=== PATIENT | male | born 1990 | race Caucasian/White ===

== ENCOUNTER 2020-04-04 21:41 | Emergency (ER) | payer BC, SELFPAY ==
[2020-04-04 21:53] VITALS: BP 140/86; BP 145/88; PULSE 78; PULSE 98; RESP 18; TEMP 36.9; O2SAT 97; O2SAT 99; BMI 31.3
--- NOTE | 2020-04-04 21:55 | ECG_ITS ---
Test Reason : ARRHYTHMIA Blood Pressure : / mmHG Vent. Rate : 070 BPM Atrial Rate : 070 BPM P-R Int : 146 ms QRS Dur : 110 ms QT Int : 400 ms P-R-T Axes : 050 006 046 degrees QTc Int : 432 ms Normal sinus rhythm Incomplete right bundle branch block Borderline ECG No previous ECGs available Referred By: Jelly Lozano Electronically Signed By:ALYSA FERNÁNDEZ MD
--- NOTE | 2020-04-04 21:57 | ED.ARRPALP ---
HPI - Arrhythmia/Palpitations General Chief Complaint: Arrhythmia/Palpitations Stated Complaint: PALPITATIONS,NUMBNESS DOWN LEFT ARM Time Seen by Provider: 04/04/20 21:55 Source: patient and EMS Mode of arrival: EMS Limitations: no limitations History of Present Illness HPI narrative: in bed on his phone felt a cramp in his left arm then developed palpitations - cramp went away and issue resolved, has had panic attacks in the past, no CP/SOB MD complaint: rapid heart beat, heart racing and atrial fibrillation Onset (ago): minute(s) (45) Duration: now resolved Severity: moderate Context: occurred during rest Associated symptoms: anxiety and paresthesias (wasn't sure if he felt tingling in his left fingers but it resolved) Related Data Allergies Allergy/AdvReac Type Severity Reaction Status Date / Time No Known Allergies Allergy Unverified 01/30/20 16:37 Review of Systems Review of Systems: Constitutional : No Weight loss, No Fever, No Chills ENT/Mouth : No sore throat, No Rhinorrhea Eyes: No Eye Pain, No Swelling Cardiovascular : no Chest Pain, no SOB, no Dyspnea on Exertion, No Orthopnea, No Edema, pos Palpitations Respiratory : No Cough, No Sputum Gastrointestinal : no Nausea, No Vomiting, No Diarrhea, No abdominal Pain, No Hematochezia, No Melena Genitourinary : No Dysuria, No Urinary Frequency Musculoskeletal : No joint pain, No Myalgias, No Joint Swelling Skin : No Skin Lesions, No rash Neuro : No Weakness, No Numbness, No Dizziness, No Headache Psych : pos Anxiety/Panic, No Depression Heme/Lymph: No Bruising, No Lymphadenopathy Endocrine : No Polyuria, No Polydipsia All other systems reviewed and are negative [facility] Past Medical History Attestation statement: The following information was validated with the patient. Medical History Anxiety Social History Social History (Updated 04/04/20 @ 21:59 by Jelly Lozano DO) Alcohol intake: current Alcohol intake frequency: a few times a month Alcohol type: beer Smoking Status: Current every day smoker Use of substances other than those prescribed or required for medical reasons: No Advance Directives: No Advance Directives Information Provided: Yes Physical Exam Vital Signs: Vital Signs: Last Vital Signs Temp 98.5 F 04/04/20 21:53 Pulse 78 04/04/20 21:53 Resp 18 04/04/20 21:53 BP 145/88 H 04/04/20 21:53 Pulse Ox 97 04/04/20 21:53 Body Mass Index 31.3 Appearance: Alert. Oriented X3. No acute distress. Eyes: Pupils equal, round and reactive to light. ENT: Pharynx normal. Neck: Normal inspection. Neck supple. CVS: Normal heart rate and rhythm. Pulses normal. Respiratory: No respiratory distress. Breath sounds normal. Abdomen: Soft and nontender. Skin: Skin warm and dry. Normal skin color. Normal skin turgor. Extremities: No lower extremity edema. No calf ttp Normal exam of LUE - SILT intact, 2+ radial pulse, BCR in all digits Neuro: Oriented X 3. No motor deficit. No sensory deficit. Course Course Course Narrative: negative workup stable for DC MDM - Arrhythmia/Palpitations MDM Narrative Medical decision making narrative: 29 yo male with hx of anxiety here with episode of L arm pain that has resolved resulting in palpitations and anxiety - no CP/SOB seems atypical for ACS/PE will obtain EKG, lytes and likely DC home if studies wnl, PERC negative Lab Data Result diagrams: 04/04/20 22:06 04/04/20 22:06 Labs: Lab Results 04/04/20 04/04/20 Range/Units 22:06 22:06 WBC 9.0 (4.8-10.8) X10*3/uL RBC 4.78 (4.60-5.80) X10*6/uL Hgb 15.3 (14.0-18.0) g/dl Hct 43.8 (42-52) % MCV 91.6 (80-98) fL MCH 32.0 (27.0-33.0) pg MCHC 34.9 (31.0-36.0) g/dl RDW 11.9 (11.0-16.0) % Plt Count 217 (160-400) X10*3/uL MPV 9.3 L (9.4-12.4) fL Immature Gran % (Auto) 0.7 H (0.0-0.4) % Neut % (Auto) 57.7 (45-73) % Lymph % (Auto) 27.6 (20-40) % [place] % (Auto) 9.6 (2-11) % Eos % (Auto) 3.7 (0-4) % Baso % (Auto) 0.7 (0-2) % Lymph # (Auto) 2.5 (1.2-4.9) X10*3/uL [place] # (Auto) 0.9 (0.1-1.2) X10*3/uL Eos # (Auto) 0.3 (0.0-0.4) X10*3/uL Baso # (Auto) 0.1 (0.0-0.2) X10*3/uL Abs Immat Gran (auto) 0.06 H (0.00-0.03) X10*3/uL Absolute Neuts (auto) 5.2 (2.0-8.3) X10*3/uL Absolute Nucleated RBC 0.000 (0.0-0.012) X10*3/uL Nucleated RBC % (auto) 0.0 (0.0-0.2) /100WBC Hold Blue Top SEE NOTE ECG Data Attestation: I personally reviewed and interpreted this ECG as follows: ECG interpretation date: 04/04/20 ECG interpretation time: 22:27 Interpretation: Rate: 70 Rhythm: NSR [place]: normal Normal P waves. Normal MARK[place]. normal QRS ST T wave : normal qTC: normal prior studies: no acute ischemia The study has been interpreted contemporaneously by me. . Scores Additional Scores PERC Score: Score: 0 Discharge Plan Discharge Clinical Impression: Palpitations Patient Disposition: Home, Self-Care Instructions: Heart Palpitations (ED) Additional Instructions: return to ED for any worsening symptoms or concerns Referrals: Kunal Khan MD [Primary Care Provider] - 2 days (if not better) Stand Alone Forms: Work/School Release
--- NOTE | 2020-04-04 22:05 | XR_ITS ---
EXAMINATION: PORTABLE CHEST 1 VIEW CLINICAL INFORMATION: palpitations . COMPARISON: 03/13/2012. TECHNIQUE: Portable frontal view of the chest was obtained. FINDINGS: The lungs are well expanded. No focal infiltrate, effusion, edema, or pneumothorax. Cardiac and mediastinal silhouettes are within normal limits for technique. No acute bony abnormality seen. XR/XR chest 1V IMPRESSION: No evidence of acute disease.
[2020-04-04 22:20] LABS: MANUAL DIFF FLAG NO
[2020-04-04 22:23] LABS: Basophils Absolute Auto 0.1 X10*3/uL (0.0-0.2); Basophils Percent Auto 0.7 % (0-2); Eosinophils Absolute Auto 0.3 X10*3/uL (0.0-0.4); Eosinophils Percent Auto 3.7 % (0-4); Hematocrit 43.8 % (42-52); Hemoglobin 15.3 g/dl (14.0-18.0); Imm Gran Abs Auto 0.06 X10*3/uL (0.00-0.03); Imm Gran Pct Auto 0.7 % (0.0-0.4); Lymphocytes Absolute Auto 2.5 X10*3/uL (1.2-4.9); Lymphocytes Percent Auto 27.6 % (20-40); Mean Corpuscular HGB Conc 34.9 g/dl (31.0-36.0); Mean Corpuscular Volume 91.6 fL (80-98); Mean Platelet Volume 9.3 fL (9.4-12.4); Monocytes Absolute Auto 0.9 X10*3/uL (0.1-1.2); Monocytes Percent Auto 9.6 % (2-11); Neutrophils Absolute Auto 5.2 X10*3/uL (2.0-8.3); Neutrophils Percent Auto 57.7 % (45-73); Platelet Count 217 X10*3/uL (160-400); Red Blood Count 4.78 X10*6/uL (4.60-5.80); Red Cell Distribution Width 11.9 % (11.0-16.0)
[2020-04-04 22:38] LABS: Amphetamine Screen Urine Not Detected (Not Detect); Barbiturates, Urine Not Detected (Not Detect); Benzodiazepines Screen Urine Not Detected (Not Detect); Cannabinoid Screen Urine Not Detected (Not Detect); Cocaine Screen Urine Not Detected (Not Detect); Opiate Screen Urine Not Detected (Not Detect); Phencyclidine Screen Urine Not Detected (Not Detect)
[2020-04-04 22:44] LABS: Anion Gap 13 (12-20); Blood Urea Nitrogen 12 mg/dL (9-16); Calcium 8.6 mg/dL (8.4-10.2); Carbon Dioxide 26 mmol/L (22-29); Chloride 105 mmol/L (96-108); Creatinine Clr Calc Pharmacy 141.7; Estimated Glomerular Filt Rate > 60; Glucose Random 98 mg/dL (60-115); Magnesium 2.2 mg/dL (1.6-2.6); Potassium 3.9 mmol/l (3.3-5.1); Sodium 140 mmol/L (135-145)
--- NOTE | 2020-04-04 22:48 | PC.NURSE ---
PT AWAITING FOR PENDING LABS.
[2020-04-04 22:52] LABS: Troponin-I High Sensitivity < 3.5 ng/L (<3.5-35.0)
[2020-04-04 23:06] LABS: Thyroid Stimulating Hormone 1.74 uIU/mL (0.32-4.0)
== END 2020-04-04 23:24 | disposition home or self-care (01) ==
PROVIDERS: Emergency Provider Emergency Medicine; PCP Internal Medicine
DX: R00.2 Palpitations (principal); F17.200 Nicotine dependence, unspecified, uncomplicated; Z71.6 Tobacco abuse counseling
CPT/HCPCS: 36415; 71045; 80048; 80307; 83735; 84443; 84484; 85025; 93005; 99283

== ENCOUNTER 2020-08-12 16:34 | Outpatient (REF) | payer BC, SELFPAY | END 2020-08-12 16:35 | disposition home or self-care (01) | LOC: HO.LNP 16:34 | PROVIDERS: Visit Provider Internal Medicine | DX: L72.8 Other follicular cysts of the skin and subcutaneous tissue (principal) | CPT/HCPCS: 87071; 87205 ==

== ENCOUNTER 2020-08-13 16:58 | Outpatient (REF) | payer BC, SELFPAY ==
[2020-08-13 17:47] LABS: Influenza A PCR NEGATIVE (Negative); Influenza B PCR NEGATIVE (Negative); Resp Syncy Virus RNA Qual PCR NEGATIVE (Negative); SARS COV2 PCR INHOUSE NEGATIVE (Negative)
== END 2020-08-13 16:59 | disposition home or self-care (01) ==
LOC: HO.LNP 16:58
PROVIDERS: Visit Provider Internal Medicine
DX: R50.9 Fever, unspecified (principal); Z20.822 Contact with and (suspected) exposure to COVID-19
CPT/HCPCS: 0241U

== ENCOUNTER 2021-06-14 23:28 | Emergency (ER) | payer BC, SELFPAY ==
[2021-06-14 23:34] VITALS: BP 141/84; PULSE 76; RESP 16; TEMP 36.6; O2SAT 99; BMI 32.5
--- NOTE | 2021-06-15 00:37 | ED_ITS ---
HPI - Extremity Problem General Chief complaint: Extremity Problem Stated complaint: blue vein in L leg, pain Time Seen by Provider: 06/14/21 23:55 Source: patient Mode of arrival: ambulatory History of Present Illness HPI Narrative: 30-year-old male with a past medical history of anxiety, cigarette smoker, presenting to the ED complaining of left calf pain and engorged leg veins since this afternoon. Was instructed by PCP to come to the emergency department. Denies fever, chills, SOB/CP, numbness/tingling, trauma/fall, history of clots, recent travel, steroid use Complaint: extremity pain Onset (ago): hour(s) Related Data Allergies Allergy/AdvReac Type Severity Reaction Status Date / Time No Known Allergies Allergy Verified 06/14/21 23:39 Review of Systems Verdana 4l Review of Systems: Verdana 4d Verdana 4d Constitutional: No Fever, No Chills, No Fatigue, No Malaise ENT/Mouth: No Ear Pain, No Nasal Congestion, No sore throat, No Rhinorrhea, No Swallowing Difficulty Eyes: No Eye Pain, No Discharge Cardiovascular: No Chest Pain, No SOB, No DyspneaDyspnea on Exertion, No Edema Respiratory: No Cough, No Sputum, No Dyspnea Gastrointestinal: No Nausea, No Vomiting, No Diarrhea, No Abdominal pain Genitourinary: No Dysuria, No Flank Pain, No Urinary Flow Changes Musculoskeletal: + joint pain, No Myalgias, No Joint Swelling Skin: No Skin Lesions, No rash Neuro: No Weakness, No Numbness, No Paresthesias, No Headache Yes all other systems are reviewed and are negative PMFSH Past Medical History Attestation statement: The following information was validated with the patient. 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 4d Pipe [employer] Tuner And Repairer New 4d Temp 97.9 F 06/14/21 23:34 Pipe Organ Tuner And Repairer New 4d Pulse 76 06/14/21 23:34 Pipe Organ Tuner And Repairer New 4d Resp 16 06/14/21 23:34 BP 141/84 H 06/14/21 23:34 Pulse Ox 99 06/14/21 23:34 BMI result Body Mass Index 32.5 Const: General: cooperative, healthy appearing, no acute distress, well developed, alert and awake Orientation/consciousness: patient oriented x3 Limitations: no limitations HENMT: Head: Yes normal to inspection Ears: hearing grossly normal bilaterally General nose exam: Normal external nose present Face and sinus: Yes normal facial exam Eyes: General: appearance normal, both eyes and all related structures EOM: EOMs intact bilaterally Neck: Neck: Yes normal visual inspection and Yes no meningeal signs Resp: Effort & Inspection: normal respiratory effort and no respiratory distress Auscultation: clear to auscultation bilaterally Cardio: Rate: regular rate Heart sounds: S1 normal heart sound present and S2 normal heart sound present Peripheral pulses: dorsalis pedis present Skin: Rashes: no rashes Wounds: no wounds Neuro: General: patient oriented x3 and no meningeal signs Gait exam (Neuro): Normal gait present Extrem: Other: +left calf ttp, no swelling/edema. Neurovascular intact distally. Mild superficial thrombophlebitis General: Yes normal to inspection Course Reevaluation(s) Reevaluation #1: -0100--D-dimer negative. Discussed with patient worrisome signs and symptoms and strict return precautions, supplied with outpatient ultrasound order for duplex tomorrow. Patient verbalized understanding & feels safe for discharge home at this time MDM - Extremity (Nontraumatic) MDM Narrative Medical decision making narrative: 30-year-old male with a past medical history of anxiety, cigarette smoker, presenting to the ED complaining of left calf pain and engorged leg veins since this afternoon. On exam vital signs stable, NAD/nontoxic-appearing, physical e xam as above. Concern for DVT vs superficial thrombophlebitis. Low concern for PE Plan: D-dimer Differential Diagnosis Differential diagnosis: Likely superficial thrombophlebitis and deep vein thrombosis of lower extremity Medical Records Attestation: I reviewed the patient's medical records. Lab Data Attestation: I reviewed the patient's lab results. Labs: Lab Results 06/15/21 Range/Units 00:40 D-Dimer High Sensitivty < 150 NG/ML Discharge Plan Discharge Clinical Impression: Superficial thrombophlebitis Patient Disposition: Home, Self-Care Instructions: Venous Insufficiency (DC) Additional Instructions: Your blood test was negative which rules you out for a blood clot. You were supplied with an outpatient ultrasound order, present to the main entrance of the hospital and register for this ultrasound tomorrow If symptoms persist or worsen, you developed leg swelling, constant or persistent pain, fever, shortness of breath or chest pain please return to the ED immediately Please follow-up with her doctor Referrals: Kunal Khan MD [Primary Care Provider] - 2 days
[2021-06-15 00:56] LABS: D Dimer High Sensitivity < 150 NG/ML
== END 2021-06-15 01:12 | disposition home or self-care (01) ==
PROVIDERS: Physician Assistant; Emergency Provider Emergency Medicine; PCP Internal Medicine
DX: I80.02 Phlebitis and thrombophlebitis of superficial vessels of left lower extremity (principal); M79.605 Pain in left leg; F17.200 Nicotine dependence, unspecified, uncomplicated
CPT/HCPCS: 36415; 85379; 99283; 99284

== ENCOUNTER 2021-06-15 14:17 | Outpatient (REF) | payer BC, SELFPAY ==
--- NOTE | ~2021-06-15 | US_ITS ---
EXAMINATION: US VENOUS ULTRASOUND WITH DOPPLER LOWER EXTREMITY, LEFT CLINICAL INFORMATION: Left calf pain COMPARISON: None TECHNIQUE: Ultrasound of the deep veins is performed from the hip to the calf with compression sonography and color and pulse Doppler assessment. Spectral analysis with color-flow imaging is performed. FINDINGS: There is normal venous compression and respiratory variation and augmented flow. The visualized common femoral vein, superficial femoral vein, profunda femoral vein, popliteal vein, and the trifurcation region shows no evidence of deep venous thrombosis. There is no significant popliteal fossa cyst. US/US venous duplex LE LT IMPRESSION: No DVT demonstrated in the left lower extremity.
== END 2021-06-15 14:18 | disposition home or self-care (01) ==
LOC: HO.US 14:17
PROVIDERS: PCP Internal Medicine; Visit Provider Physician Assistant
DX: M79.662 Pain in left lower leg (principal)
CPT/HCPCS: 93971

== ENCOUNTER 2022-12-16 13:32 | Outpatient (REF) | payer SELFPAY | END 2022-12-16 13:33 | disposition home or self-care (01) | LOC: HO.LNP 13:32 | PROVIDERS: Visit Provider Internal Medicine | DX: J02.9 Acute pharyngitis, unspecified (principal) | CPT/HCPCS: 87070; 87147 ==

== ENCOUNTER 2023-10-18 13:54 | Emergency (ER) | payer BC, SELFPAY ==
--- NOTE | ~2023-10-18 | US_ITS ---
EXAMINATION: US SCROTUM CLINICAL INFORMATION: Severe left testicular pain 2 months.. COMPARISON: CT of the pelvis May 28, 2016 TECHNIQUE: A sonogram of the scrotum was performed assessing aden-scale appearance and color Doppler flow. Spectral Doppler analysis of the arterial and venous flow were performed in the testes bilaterally. FINDINGS: RIGHT: Right testicle measures 4 x 2.2 x 2.5 cm, volume 11.5 mL. No focal testicular parenchymal lesions are visualized. Spectral Doppler analysis of the arterial and venous flow is normal in the right testis. Right epididymal head is normal in size. No right hydrocele or varicocele is seen. Right epididymal Doppler flow is normal. Right inguinal canal: Normal LEFT: Left testicle measures 3.5 x 2.1 x 2.2 cm, volume 8.4 mL. No focal testicular parenchymal lesions are visualized. Spectral Doppler analysis of the arterial and venous flow is normal in the left testis. Left inguinal canal: There is hernia left inguinal canal containing nonobstructive bowel loops. The hernia diameter measures about 1.5 cm. Left inguinal hernia new since CAT scan May 28, 2016 Left epididymal head is normal in size. No left hydrocele or varicocele is seen. Left epididymal Doppler flow is normal. US/US scrotum doppler IMPRESSION: 1. Normal right and left testicle. 2. Left inguinal hernia containing nonobstructive bowel loops.
--- NOTE | ~2023-10-18 | US_ITS ---
EXAMINATION: US SCROTUM CLINICAL INFORMATION: Severe left testicular pain 2 months.. COMPARISON: CT of the pelvis May 28, 2016 TECHNIQUE: A sonogram of the scrotum was performed assessing aden-scale appearance and color Doppler flow. Spectral Doppler analysis of the arterial and venous flow were performed in the testes bilaterally. FINDINGS: RIGHT: Right testicle measures 4 x 2.2 x 2.5 cm, volume 11.5 mL. No focal testicular parenchymal lesions are visualized. Spectral Doppler analysis of the arterial and venous flow is normal in the right testis. Right epididymal head is normal in size. No right hydrocele or varicocele is seen. Right epididymal Doppler flow is normal. Right inguinal canal: Normal LEFT: Left testicle measures 3.5 x 2.1 x 2.2 cm, volume 8.4 mL. No focal testicular parenchymal lesions are visualized. Spectral Doppler analysis of the arterial and venous flow is normal in the left testis. Left inguinal canal: There is hernia left inguinal canal containing nonobstructive bowel loops. The hernia diameter measures about 1.5 cm. Left inguinal hernia new since CAT scan May 28, 2016 Left epididymal head is normal in size. No left hydrocele or varicocele is seen. Left epididymal Doppler flow is normal. US/US scrotum IMPRESSION: 1. Normal right and left testicle. 2. Left inguinal hernia containing nonobstructive bowel loops.
--- NOTE | 2023-10-18 13:57 | ED_ITS ---
HPI - General Adult General Chief complaint: Urogenital-Male Stated complaint: testicular pain Time Seen by Provider: 10/18/23 16:37 Source: patient Mode of arrival: ambulatory Limitations: no limitations History of Present Illness ED Provider: Dr. Branden Blankenship HPI narrative: 33-year-old male presents emergency department with recurring left testicular pain. He states he has been more constant past day he came in for evaluation he denies any fevers chills nausea vomiting diarrhea still eating and drinking normally patient seen at front sent for a testicular ultrasound and had a urinalysis done. Related Data Allergies Allergy/AdvReac Type Severity Reaction Status Date / Time No Known Allergies Allergy Verified 10/18/23 13:59 Review of Systems Review of Systems: Review of systems: General: Patient denies any fever chills recent illness or falls Musculoskeletal: Denies back pain or body aches or other injuries HEENT: denies headache, runny nose, ear pain Respiratory: denies shortness of breath, cough Cardiovascular: no chest pain or palpitations : denies dysuria, frequency Abdomen: no nausea vomiting denies abdominal pain Left testicular pain now resolved Extremities: no swelling, no pain Skin: no diaphoresis Yes all other systems are reviewed and are negative PMFSH Past Medical History Medical History Anxiety Social History Social History Alcohol intake: current Alcohol intake frequency: a few times a month Alcohol type: beer Advance Directives: No Advance Directives Information Provided: No Physical Exam ED Vital Signs: Vital Signs - 24 hr 10/18/23 13:58 Temperature 98 F Pulse Rate 86 Respiratory Rate 16 Blood Pressure 141/70 H Pulse Oximetry 98 Oxygen Delivery Method Room Air BMI result Body Mass Index 33.4 General: Well-appearing well-nourished in no signs of distress HEENT: Normocephalic atraumatic Neck: No signs of JVD, no masses no tenderness or lymphadenopathy Cardiovascular: Regular rate and rhythm Respiratory: Clear to auscultation bilaterally Abdomen: Soft nontender no masses Focused testicular exam done as well as hernia exam patient is nontender to palpation of either testicle normal motion patient does have a slight hernia on the left side that was palpated by me Extremities: Normal pedal pulses no signs of edema Skin: Dry warm no rashes Back: No tenderness full ROM Course Course Course Narrative: This is a rapid medical exam performed by Ondina Gifford NP: Additional HPI, ROS, PE not included below will be deferred to primary provider. Patient is a 33-year-old male presenting to the ED with complaint of intermittent left testicular pain for the past 2-3 months. States today pain was most severe, unable to touch. Denies rash or swelling. Denies difficulty urinating. Plan: UA, CT NG urine, U/S Medical Decision Making Medical Decision Making [facility] Narrative: Patient did have ultrasound which was negative as well as urinalysis I explained the need follow-up with surgery patient is happy with the plan Differential Diagnosis Differential Diagnoses: The differential diagnosis associated with the presentation includes Hernia testicular pain torsion Admission/Observation Consideration of admission/observation: Escalation of care including admission/observation considered Lab Data [facility] Lab Attestation statement: I reviewed the patient's lab results. Labs: Lab Results 10/18/23 Range/Units 15:50 Urine Color Dark Yellow Urine Appearance Clear Urine pH 5.5 (5.0-9.0) Ur Specific [place] >= 1.030 H (1.005-1.025) Urine Protein Negative (Neg-Trace) mg/dL Urine Glucose (UA) Negative (Negative) mg/dL Urine Ketones Trace (Negative) mg/dL Urine Blood Negative (Negative) Urine Nitrite Negative (Negative) Ur Leukocyte Esterase Negative (Negative) Radiology Impression Discussion of test interpretation with radiology: I have reviewed the rad iologist's reading. Discharge Plan Discharge Clinical Impression: Inguinal hernia Patient Disposition: Home, Self-Care Instructions: Inguinal Hernia (ED), Laparoscopic Herniorrhaphy (DC) Additional Instructions: You were seen today for left tissue pain found to have hernia. You underwent testing here which included ultrasound and urine which demonstrated the hernia but no infection Please call follow up with . Referrals: Derrick Roy MD [Physician] - (You were seen for a hernia Please call to get set up about possible surgery.) Print Language: Lao
[2023-10-18 13:58] VITALS: BP 141/70; PULSE 86; RESP 16; TEMP 36.6; O2SAT 98; BMI 33.4
[2023-10-18 16:00] LABS: Appearance Urine Clear; Color Urine Dark Yellow; Glucose Urine UA Negative (Negative); Leukocyte Esterase Urine Negative (Negative); Nitrite Urine Negative (Negative); PH 5.5 (5.0-9.0); Specific Gravity - Urine >= 1.030 (1.005-1.025); Urine Blood Negative (Negative); Urine Ketones Trace mg/dL (Negative); Urine Protein Negative (Neg-Trace)
[2023-10-18 17:25] VITALS: BP 121/81; PULSE 64; RESP 16; TEMP 36.3; O2SAT 97
[2023-10-18 17:43] LABS: CT PCR NOT DETECTED (Not Detect.); NG PCR NOT DETECTED (Not Detect.)
== END 2023-10-18 17:26 | disposition home or self-care (01) ==
PROVIDERS: Registered Nurse Emergency; Emergency Provider Student in an Organized Health Care Education/Training Program; PCP Internal Medicine
DX: K40.90 Unilateral inguinal hernia, without obstruction or gangrene, not specified as recurrent (principal); N50.812 Left testicular pain
CPT/HCPCS: 0353U; 76870; 81003; 93975; 99282; 99284

== ENCOUNTER 2023-10-31 15:33 | Outpatient (AMB) | payer BC, SELFPAY ==
--- NOTE | 2023-10-31 15:34 | MHC.OFFVIS ---
Vital Signs 10/31/23 15:35 Height 5 ft 8 in Weight 220 lb BMI 33.4 BP 129/67 Blood Pressure Location Rt brachial Position Sitting Pulse 75 Intake Visit Reasons: left inguinal hernia Intake Note: Patient is seen in office for ER follow up visit, following left inguinal hernia. Pt c/o: reports intermittent pain, left groin. US & ED:10/18/23 Outside Cutter Required: No Accompanied by: Self / Same As Patient Allergies No Known Allergies Allergy (Verified 10/31/23 15:42) Medication List - Last Reconciled 10/31/23 by Derrick Roy MD No Known Home Meds HPI Comments Details: 33-year-old male patient presenting for evaluation of a left inguinal hernia. He reports several weeks ago developing severe pain in the left testicle. This occurred after his daughter kicked his groin when he picked her up. 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 There was no immediate pain however several hours later he developed the severe testicular pain. He was evaluated in the emergency department at which time an ultrasound was performed. There is no evidence of torsion or epididymitis. A small left inguinal hernia was identified. The pain subsequently resolved within 24 hours. He denies any current pain. He does report several episodes of similar pain which has occurred intermittently over several years with no clear inciting events. He presents today to discuss possible inguinal hernia repair. [facility] Medical History Anxiety Surgical History No pertinent past surgical history Family History Other Family history unknown Social History Alcohol intake: current Alcohol intake frequency: a few times a month Alcohol type: beer Review of Systems Const All systems reviewed & are unremarkable except as noted in HPI and below Denies chills, Denies fever(s), Denies headache(s), Denies poor appetite and Denies weakness ENT Denies headache(s) Card Denies chest pain, Denies irregular heart rhythm, Denies palpitations and Denies dyspnea Resp Denies cough, Denies excessive phlegm production and Denies dyspnea GI Denies abdominal pain, Denies bloating, Denies change in bowel habits, Denies constipation, Denies heartburn, Denies diarrhea, Denies nausea and Denies vomiting Reports as per HPI, Denies difficulty urinating and Denies urinary frequency Musc Denies back pain, Denies muscle weakness and Denies numbness Skin/Breast Denies changing lesions and Denies unusual bruising Neuro Denies headache(s), Denies numbness, Denies paresthesias and Denies weakness Psych Denies anxiety and Denies depression Endo Denies palpitations Ramses/Lymph Denies lymphadenopathy Physical Exam Vital Signs: Last Vital Signs Pulse 75 10/31/23 15:35 BP 129/67 10/31/23 15:35 BMI result Body Mass Index 33.4 Const General: cooperative and no acute distress Nutritional Appearance: well nourished Orientation/consciousness: patient oriented x3 Limitations: no limitations HEENT Head: Yes normocephalic and Yes atraumatic Ears: hearing grossly normal bilaterally Resp Effort & Inspection: normal respiratory effort, no audible wheezes, no cough and no respiratory distress Cardio Jugular venous distension: no JVD GI Other: Examination in the standing position with Valsalva maneuvers reveal a very small left inguinal hernia which reduces spontaneously but is felt only with Valsalva maneuvers. No right inguinal hernias identified. Inspection: Yes normal to inspection Palpation (GI): Soft to palpation, nontender and no guarding Skin Other: Warm, dry, no rash Neuro General: patient oriented x3 Extrem General: Yes no clubbing, cyanosis or edema Assessment & Plan Assessment & Plan (1) Testicular pain, left: Code(s): N50.812 - Left testicular pain Category: Medical (2) Left inguinal hernia: Code(s): K40.90 - Unilateral inguinal hernia, without obstruction or gangrene, not specified as recurrent Category: Medical Plan 33-year-old male patient presenting for evaluation of a left inguinal hernia. He had a recent episode of severe pain in the left testicle, and underwent workup in the emergency department. Normal vascularity was identified and no torsion noted. He was noted to have a small inguinal hernia on the left side. Examination today reveals a tiny area of weakness which reduces spontaneously. I am uncertain this small hernia is capable causing the pain in the testicle. The size is quite small and does not require repair at this time. I recommended continued observation with return should the symptoms persist. He expressed understanding and agrees with the plan. Coding Level of Care Code New Pt Level 4 (10094) Diagnoses Testicular pain, left N50.812 Left inguinal hernia K40.90
[2023-10-31 15:35] VITALS: BP 129/67; PULSE 75; BMI 33.4
== END 2023-10-31 15:54 | disposition home or self-care (01) ==
PROVIDERS: PCP Internal Medicine; Visit Provider Surgery
DX: N50.812 Left testicular pain (principal); K40.90 Unilateral inguinal hernia, without obstruction or gangrene, not specified as recurrent
CPT/HCPCS: 99203

== ENCOUNTER → 2023-10-31 15:33 | Outpatient (BNVA) | payer BC, SELFPAY | PROVIDERS: PCP Internal Medicine; Visit Provider Surgery ==